=== PATIENT | male | born 1930 | race Caucasian/White ===

== ENCOUNTER 2016-12-05 08:22 | Inpatient (IN) | payer MEDICARE, MEDICAID ==
--- NOTE | 2016-12-05 09:24 | ED Physician Chart ---
ED Chief Complaint/HPI - Patient Information Date Seen:: 12/05/16 Time Seen:: 09:15 Chief Complaint:: hematuria History of Present Illness:: Patient was noted to have hematuria at his care home facility and was sent here for evaluation. Patient had a cholecystectomy 11 days ago at [facility]. Allergies:: Allergies Allergy/AdvReac Type Severity Reaction Status Date / Time No Known Allergies Allergy Verified 12/05/16 08:56 Vitals:: Vital Signs - 8 hr 12/05/16 08:51 Temp 98.5 F HR 92 RR 16 BP 119/84 O2 Sat % 98 Historian:: Other Review:: Nurse's Note Reviewed, No other information ED Review of Systems - Review of Systems General/Constitutional: No fever, No chills Skin: No skin lesions Head: No headache Eyes: Acuity change ENT: No earache Neck: No neck pain Cardio Vascular: No palpitations Pulmonary: No SOB GI: No nausea, No vomiting G/U: Hematuria Musculoskeletal: No bone or joint pain Endocrine: No polyuria, No polydipsia Psychiatric: Prior psych history, Other (dementia) Hematopoietic: No bruising Allergic/Immuno: No urticaria Neurological: No syncope ED Past Medical History - Past Medical History Past Medical History: Dementia, Other (benign prostatic hypertrophy) Family History: Other Social History: Care Facility Surgical History: Cholecystectomy Psychiatricy History: Dementia Medication: Reviewed Family Medical History - Family Member Mother History Unknown: Yes ED Physical Exam - Physical Examination General/Constitutional: Well-developed, well-nourished, Alert, No distress Head: Atraumatic Eyes: Lids, conjuctiva normal Skin: Nl inspection, No rash ENMT: External ears, nose nl, Lips, teeth, gums nl (some teeth absent) Neck: No nuchal rigidity Respiratory: Nl effort/Exclusion, Clear to Auscultation, No Wheeze/Rhonchi/Rales Other Cardio Vascular comments:: Heart sounds faint; pulse is regular GI: No tenderness/rebounding/guarding : No CVA tenderness Extremities: Normal digits & nails Neuro/Psych: No focal deficits Misc: Normal back ED Labs/Radiology/EKG Results - Lab Results Results: Laboratory Results - last 24 hr 12/05/16 12/05/16 12/05/16 09:30 09:30 09:30 WBC 6.4 RBC 3.77 L Hgb 12.0 Hct 35.3 L MCV 93.6 MCH 31.9 H MCHC Differential 34.1 RDW 13.7 Plt Count 207 MPV 9.1 Neutrophils % 55.1 Lymphocytes % 28.6 Monocytes % 10.8 H Eosinophils % 4.7 Basophils % 0.8 PT 11.8 H INR 1.12 PTT (Actin FS) 29.9 Sodium 137 Potassium 3.8 Chloride 104 Carbon Dioxide 29.0 Anion Gap 7.8 BUN 22 Creatinine 1.1 Est GFR ( Amer) TNP Est GFR (Non-Af Amer) TNP BUN/Creatinine Ratio 20.0 Glucose 83 Calcium 8.8 Urine Source Urine Color Urine Clarity Urine pH Ur Specific [place] Urine Protein Urine Glucose (UA) Urine Ketones Urine Blood Urine Nitrate Urine Bilirubin Urine Urobilinogen Ur Leukocyte Esterase Urine RBC Urine WBC Ur Epithelial Cells Urine Bacteria 12/05/16 09:40 WBC RBC Hgb Hct MCV MCH MCHC Differential RDW Plt Count MPV Neutrophils % Lymphocytes % Monocytes % Eosinophils % Basophils % PT INR PTT (Actin FS) Sodium Potassium Chloride Carbon Dioxide Anion Gap BUN Creatinine Est GFR ( Amer) Est GFR (Non-Af Amer) BUN/Creatinine Ratio Glucose Calcium Urine Source [place] Urine Color RED Urine Clarity CLOUDY Urine pH 6.5 Ur Specific [place] 1.010 Urine Protein >=300 Urine Glucose (UA) NEGATIVE Urine Ketones NEGATIVE Urine Blood LARGE H Urine Nitrate POSITIVE H Urine Bilirubin SMALL H Urine Urobilinogen 2.0 Ur Leukocyte Esterase TRACE H Urine RBC >100 H Urine WBC 2-5 H Ur Epithelial Cells FEW Urine Bacteria FEW ED Septic Shock - . Is Septic Shock (SBP<90, OR Lactate>4 mmol\L) present?: No - <6hrs of presentation: Vital Signs: Vital Signs - 8 hr 12/05/16 08:51 Temp 98.5 F HR 92 RR 16 BP 119/84 O2 Sat % 98 ED Reassessment (Disposition) - Reassessment Reassessment Condition:: Unchanged - Diagnosis Diagnosis:: Hematuria; dementia; - Patient Disposition Admitted to:: Med/Surg Spoke to:: Blayne Kwok Admitting Medical Physician:: Blayne Kwok Condition at Disposition:: Stable, Unchanged
[2016-12-05 09:48] LABS: % BASOPHILS 0.8 % (0.0-2.0); % EOSINOPHILS 4.7 % (0.0-5.0); % LYMPHOCYTES 28.6 % (20.0-50.0); % MONOCYTES 10.8 % (2.0-10.0); % NEUTROPHILS 55.1 % (40.0-80.0); HEMATOCRIT 35.3 % (41.0-60); MEAN CELL VOLUME 93.6 fl (80-99); MEAN CORPUSCULAR HEMOGLOBIN 31.9 pg (27.0-31.0); MEAN CORPUSCULAR HGB CONC 34.1 pg (28.0-36.0); MEAN PLATELET VOLUME 9.1 fl; NEUTROPHILE ABSOLUTE 3.5 Th/cmm (1.8-8.0); PLATELET COUNT 207 Th/cmm (150-400); RED BLOOD COUNT 3.77 Mil/cmm (3.80-5.80); RED CELL DISTRIBUTION WIDTH 13.7 % (11.5-20.0); WHITE BLOOD COUNT 6.4 Th/cmm (4.8-10.8)
[2016-12-05 09:53] LABS: ANION GAP 7.8 (7.0-16.0); BUN - UREA NITROGEN 22 mg/dL (7-25); CALCIUM SERUM 8.8 mg/dL (8.6-10.3); CHLORIDE 104 mEq/L (98-107); CREATININE - SERUM 1.1 mg/dL (0.7-1.3); GLUCOSE 83 mg/dL (70-105); INR 1.12 (0.5-1.4); POTASSIUM SERUM 3.8 mEq/L (3.5-5.1); PROTHROMBIN TIME (TEST) 11.8 SECONDS (9.5-11.5); SODIUM SERUM 137 mEq/L (136-145)
[2016-12-05 10:08] LABS: URINE BILIRUBIN SMALL (NEGATIVE); URINE BLOOD LARGE (NEGATIVE); URINE GLUCOSE (UA) NEGATIVE (NEGATIVE); URINE KETONE NEGATIVE (NEGATIVE); URINE PH 6.5 (4.6 - 8.0); URINE PROTEIN >=300 mg/dL (NEGATIVE)
[2016-12-05 10:09] LABS: URINE COLOR RED
[2016-12-05 10:12] LABS: URINE EPITHELIAL CELLS FEW /lpf (FEW); URINE RBC >100 /hpf (0-5)
[2016-12-05 10:13] LABS: URINE BACTERIA FEW /hpf (NONE SEEN)
--- NOTE | 2016-12-05 12:59 | History and Physical ---
History of Present Illness - HPI Chief Complaint: Hematuria HPI: This a case that I follow at a SNF, I received a call stating that patient has having hematuria, order to transfer patient to ER was given. 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 GI: Report: No Pertinent Hx Psych: Report: Anxiety Musculoskeletal: Report: No Pertinent Hx Rheumatologic: Report: No pertinent Hx Infectious Disease: Report: No Pertinent Hx Renal/: Report: Benign Prostatic Enlarg, Hematuria Endocrine: Report: No Pertinent Hx Dermatology: Report: No Pertinent Hx - Past Surgical History Past Surgical History: No pertinent Hx Family Medical History - Family Member Mother History Unknown: Yes Social History Smoke: No Alcohol: None Drugs: None Lives: Alf Domestic Violence: Negative - Medications Home Medications: Home Medication Medication Instructions Recorded Type Acetaminophen [Tylenol] 650 mg PO Q6HR PRN 12/05/16 History Acetaminophen [Tylenol] 650 mg PO Q6HR PRN 12/05/16 History Aspirin EC [Ecotrin] 81 mg PO DAILY 12/05/16 History Atorvastatin Calcium [Lipitor] 10 mg PO HS 12/05/16 History Cholecalciferol (Vitamin D3) 50,000 unit PO DAILY 12/05/16 History [Vitamin D3] Donepezil Hcl [Aricept] 10 mg PO DAILY 12/05/16 History Memantine [Namenda] 10 mg PO BID 12/05/16 History Tamsulosin [Flomax] 0.4 mg PO HS 12/05/16 History - Allergies Allergies/Adverse Reactions: Allergies Allergy/AdvReac Type Severity Reaction Status Date / Time No Known Allergies Allergy Verified 12/05/16 08:56 Review of Systems - Review of Systems Constitutional: Report: No Significant Eyes: Report: No Significant, Vision Change ENT: Report: No Significant Respiratory: Report: No Significant Cardiovascular: Report: No Significant Gastrointestinal: Report: No Significant Genitourinary: Report: Hematuria Musculoskeletal: Report: No Significant Skin: Report: No Significant Neurological: Report: Weakness, Confusion Physical Exam - Physical Exam HEENT: Report: Ears Nose Throat within normal limits Neck: Report: Within normal limits Cardiovascular Systems: Report: Regular, Rate and Rhythm Abdomen: Report: Non-tender to palpation Back: Report: Inspection of back is within normal limits. Extremities: Report: Non-tender to palpation. Skin: Report: Color of skin is within normal limits, Warm, Dry - Lab Results All Lab Results last 24 hours: Laboratory Last Values WBC 6.4 Th/cmm (4.8-10.8) 12/05/16 09:30 RBC 3.77 Mil/cmm (3.80-5.80) L 12/05/16 09:30 Hgb 12.0 gm/dL (12-16) 12/05/16 09:30 Hct 35.3 % (41.0-60) L 12/05/16 09:30 MCV 93.6 fl (80-99) 12/05/16 09:30 MCH 31.9 pg (27.0-31.0) H 12/05/16 09:30 MCHC Differential 34.1 pg (28.0-36.0) 12/05/16 09:30 RDW 13.7 % (11.5-20.0) 12/05/16 09:30 Plt Count 207 Th/cmm (150-400) 12/05/16 09:30 MPV 9.1 fl 12/05/16 09:30 Neutrophils % 55.1 % (40.0-80.0) 12/05/16 09:30 Lymphocytes % 28.6 % (20.0-50.0) 12/05/16 09:30 Monocytes % 10.8 % (2.0-10.0) H 12/05/16 09:30 Eosinophils % 4.7 % (0.0-5.0) 12/05/16 09:30 Basophils % 0.8 % (0.0-2.0) 12/05/16 09:30 PT 11.8 SECONDS (9.5-11.5) H 12/05/16 09:30 INR 1.12 (0.5-1.4) 12/05/16 09:30 PTT (Actin FS) 29.9 SECONDS (26.0-38.0) 12/05/16 09:30 Sodium 137 mEq/L (136-145) 12/05/16 09:30 Potassium 3.8 mEq/L (3.5-5.1) 12/05/16 09:30 Chloride 104 mEq/L (98-107) 12/05/16 09:30 Carbon Dioxide 29.0 mEq/L (21.0-31.0) 12/05/16 09:30 Anion Gap 7.8 (7.0-16.0) 12/05/16 09:30 BUN 22 mg/dL (7-25) 12/05/16 09:30 Creatinine 1.1 mg/dL (0.7-1.3) 12/05/16 09:30 Est GFR ( Amer) TNP 12/05/16 09:30 Est GFR (Non-Af Amer) TN 12/05/16 09:30 BUN/Creatinine Ratio 20.0 12/05/16 09:30 Glucose 83 mg/dL (70-105) 12/05/16 09:30 Calcium 8.8 mg/dL (8.6-10.3) 12/05/16 09:30 Urine Source [place] 12/05/16 09:40 Urine Color RED 12/05/16 09:40 Urine Clarity CLOUDY (CLEAR) 12/05/16 09:40 Urine pH 6.5 (4.6 - 8.0) 12/05/16 09:40 Ur Specific Iron 1.010 (1.005-1.030) 12/05/16 09:40 Urine Protein >=300 mg/dL (NEGATIVE) 12/05/16 09:40 Urine Glucose (UA) NEGATIVE mg/dL (NEGATIVE) 12/05/16 09:40 Urine Ketones NEGATIVE mg/dL (NEGATIVE) 12/05/16 09:40 Urine Blood LARGE (NEGATIVE) H 12/05/16 09:40 Urine Nitrate POSITIVE (NEGATIVE) H 12/05/16 09:40 Urine Bilirubin SMALL (NEGATIVE) H 12/05/16 09:40 Urine Urobilinogen 2.0 E.U./dL (0.2 - 1.0) 12/05/16 09:40 Ur Leukocyte Esterase TRACE (NEGATIVE) H 12/05/16 09:40 Urine RBC >100 /hpf (0-5) H 12/05/16 09:40 Urine WBC 2-5 /hpf (0-5) H 12/05/16 09:40 Ur Epithelial Cells FEW /lpf (FEW) 12/05/16 09:40 Urine Bacteria FEW /hpf (NONE SEEN) 12/05/16 09:40 - Assessment Assessment: Patient is awake, alert, confused, not oriented. Dx: Hematuria, UTI, BPH, BPH, Hyperlipidemia, Dementia - Plan Plan: Patient is continue with SNF meds, IV NS, Ceftriaxone, Abdominal US requested.
[2016-12-05] MEDS ORDERED: cefTRIAXone 1 GM in Sodium Chloride 0.9% 50 ML IV SCH (13:00)
[2016-12-05] MEDS ORDERED: Atorvastatin Calcium 10 MG TAB PO SCH (21:00)
[2016-12-06 06:28] LABS: % BASOPHILS 0.5 % (0.0-2.0); % EOSINOPHILS 4.7 % (0.0-5.0); % LYMPHOCYTES 33.2 % (20.0-50.0); % MONOCYTES 10.6 % (2.0-10.0); HEMATOCRIT 33.5 % (41.0-60); HEMOGLOBIN 11.4 gm/dL (12-16); MEAN CELL VOLUME 92.4 fl (80-99); MEAN CORPUSCULAR HEMOGLOBIN 31.6 pg (27.0-31.0); MEAN CORPUSCULAR HGB CONC 34.1 pg (28.0-36.0); MEAN PLATELET VOLUME 8.6 fl; PLATELET COUNT 226 Th/cmm (150-400); RED BLOOD COUNT 3.63 Mil/cmm (3.80-5.80); RED CELL DISTRIBUTION WIDTH 13.5 % (11.5-20.0); WHITE BLOOD COUNT 5.8 Th/cmm (4.8-10.8)
[2016-12-06 06:49] LABS: ALB/GLOB RATIO 1.2 (1.0-1.8); ALKALINE PHOSPHATASE 115 U/L (34-104); ANION GAP 8.4 (7.0-16.0); BILIRUBIN,TOTAL 0.7 mg/dL (0.3-1.0); BUN - UREA NITROGEN 26 mg/dL (7-25); BUN/CREATININE RATIO 23.6; CALCIUM SERUM 8.6 mg/dL (8.6-10.3); CARBON DIOXIDE 27.3 mEq/L (21.0-31.0); CHLORIDE 105 mEq/L (98-107); CREATININE - SERUM 1.1 mg/dL (0.7-1.3); GLUCOSE 77 mg/dL (70-105); POTASSIUM SERUM 3.7 mEq/L (3.5-5.1); SGOT 20 U/L (13-39); SGPT/ALT 14 U/L (7-52); SODIUM SERUM 137 mEq/L (136-145)
[2016-12-06] MEDS ORDERED: CHOLECALCIFEROL 50000 UNIT PO SCH (09:00)
--- NOTE | 2016-12-06 16:59 | Discharge Summary ---
General Discharge Summary - Discharge Summary Date of Admission: 12/05/16 Admitting Diagnosis: Hematuria Discharge Date: 12/06/16 Discharge Diagnosis: UTI, Hematuria Laboratory Findings: Laboratory Tests 12/06/16 12/06/16 06:00 06:00 WBC 5.8 RBC 3.63 L Hgb 11.4 L Hct 33.5 L MCV 92.4 MCH 31.6 H MCHC Differential 34.1 RDW 13.5 Plt Count 226 MPV 8.6 Neutrophils % 51.0 Lymphocytes % 33.2 Monocytes % 10.6 H Eosinophils % 4.7 Basophils % 0.5 Sodium 137 Potassium 3.7 Chloride 105 Carbon Dioxide 27.3 Anion Gap 8.4 BUN 26 H Creatinine 1.1 Est GFR ( Amer) TNP Est GFR (Non-Af Amer) TNP BUN/Creatinine Ratio 23.6 Glucose 77 Calcium 8.6 Total Bilirubin 0.7 AST 20 ALT 14 Alkaline Phosphatase 115 H Total Protein 6.3 Albumin 3.4 L Globulin 2.9 Albumin/Globulin Ratio 1.2 Hospital Course: Patient was hospitalized and started in IV NS, Ceftriaxone, continue with SNF meds Treatment: IV NS, AB, continue with SNF meds, Patient refused abdominal US. Disposition: Discharge/Transfered to SNF Home Medications: Home Medication Medication Instructions Recorded Type Acetaminophen [Tylenol] 650 mg PO Q6HR PRN tab 12/06/16 Rx Aspirin EC [Ecotrin] 81 mg PO DAILY ect 12/06/16 Rx Atorvastatin Calcium [Lipitor] 10 mg PO HS tab 12/06/16 Rx Donepezil Hcl [Aricept] 10 mg PO DAILY tab 12/06/16 Rx Ergocalciferol [Vitamin D] 50,000 iu PO DAILY sgl 12/06/16 Rx Memantine [Namenda] 10 mg PO BID tab 12/06/16 Rx Tamsulosin [Flomax] 0.4 mg PO HS cap 12/06/16 Rx Activity: As Tolerated Discharge Diet: Regular Consults and Follow-Up: KASSIDY SULLIVAN [Other] not on staff,PCP is [Primary Care Provider] - Consulting Speciality: Urology Instructions: Urinary Tract Infection, [id number], Hematuria, Adult
== END 2016-12-06 11:34 | disposition home or self-care (01) | DRG 690 ==
LOC: ER 08:22 → MSI 10:55
PROVIDERS: ADMIT General Practice; ATTEND General Practice
DX: N39.0 Urinary tract infection, site not specified (principal); R31.9 Hematuria, unspecified; F03.90 Unspecified dementia, unspecified severity, without behavioral disturbance, psychotic disturbance, mood disturbance, and anxiety; N40.0 Benign prostatic hyperplasia without lower urinary tract symptoms; E78.5 Hyperlipidemia, unspecified; I25.10 Atherosclerotic heart disease of native coronary artery without angina pectoris; F41.9 Anxiety disorder, unspecified; Z79.82 Long term (current) use of aspirin; Z90.49 Acquired absence of other specified parts of digestive tract
CPT/HCPCS: 36415-UA; 80048-TC; 80053-TC; 81001-TC; 85025-TC; 85610-TC; 85730-TC; J0696; Z7610